=== PATIENT | female | born 1995 | race African-American/Black ===

== ENCOUNTER 2017-02-14 05:17 | Emergency (ER) | payer OTHER ==
[2017-02-14 05:20] VITALS: O2SAT 100
[2017-02-14 05:39] LABS: I-STAT POTASSIUM 3.6 MMOL/L (3.5-4.9)
[2017-02-14] MEDS ORDERED: IOHEXOL 350 MG/ML 10 ML VIAL (for RAD DIAG) IV ONE (05:43)
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
[2017-02-14 05:48] LABS: AUTOMATED NEUTROPHIL # 6.1 TH/MM3 (1.8-7.7); BASOPHIL % 0.4 % (0.0-2.0); EOSINOPHIL % 0.5 % (0.0-4.0); HEMATOCRIT 44.8 % (35.0-46.0); HEMO FLAGS DIFF FINAL; LYMPH % 32.4 % (9.0-44.0); LYMPHOCYTE # 3.3 TH/MM3 (1.0-4.8); MEAN CELL VOLUME 87.2 FL (80.0-100.0); MEAN CORPUSCULAR HEMOGLOBIN 29.3 PG (27.0-34.0); MEAN CORPUSCULAR HGB CONC 33.6 % (32.0-36.0); MONO % 6.3 % (0.0-8.0); NEUT % 60.4 % (16.0-70.0); PLATELET COUNT 247 TH/MM3 (150-450); RED BLOOD COUNT 5.13 MIL/MM3 (4.00-5.30); RED CELL DISTRIBUTION WIDTH 13.3 % (11.6-17.2); WHITE BLOOD COUNT 10.1 TH/MM3 (4.0-11.0)
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
[2017-02-14 06:07] LABS: APTT (PATIENT) 24.2 SEC (24.3-30.1); PROTHROMBIN TIME - PATIENT 10.5 SEC (9.8-11.6)
[2017-02-14] MEDS ORDERED: NALOXONE HCL 2 MG/2 ML VIAL IV PUSH ONE (06:15)
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
[2017-02-14 07:17] VITALS: BP 131/69; PULSE 98; RESP 16; O2SAT 99
[2017-02-14 07:20] VITALS: RESP 16; O2SAT 99
[2017-02-14 11:30] VITALS: BP 125/68; PULSE 102; RESP 20; O2SAT 99
[2017-02-14] MEDS ORDERED: IBUP-232 PO (15:48)
== END 2017-02-14 15:54 | disposition home or self-care (01) ==
LOC: EDBD 05:17 → NEPI 05:17 → NEPE 15:54
DX: S71.111A Laceration without foreign body, right thigh, initial encounter (principal); S81.011A Laceration without foreign body, right knee, initial encounter; S00.81XA Abrasion of other part of head, initial encounter; D27.0 Benign neoplasm of right ovary; F10.120 Alcohol abuse with intoxication, uncomplicated; Y90.6 Blood alcohol level of 120-199 mg/100 ml; V47.5XXA Car driver injured in collision with fixed or stationary object in traffic accident, initial encounter; Z23 Encounter for immunization
CPT/HCPCS: 12002; 70450; 70486; 71010; 71260; 72125; 72170; 73560; 74177; 80307; 82435; 82565; 82947; 84132; 84295; 84520; 85025; 85610; 85730; 86850; 86900; 86901; 90471; 96361; 96374; 96375; 99291; Q9967; G0390

== ENCOUNTER 2017-02-22 17:08 | Emergency (ER) | payer SELFPAY ==
[~2017-02-22 17:08] MED LIST: IBUP-232 PO
[2017-02-22 17:12] VITALS: BP 131/79; PULSE 70; RESP 16; TEMP 99.1; O2SAT 99
[2017-02-22] MEDS ORDERED: IBUPROFEN 800 MG TAB PO ONE (18:45)
--- NOTE | 2017-02-22 18:45 | PD ---
HPI Chief Complaint: Wound/Suture/Staple Re-Check Time Seen by Provider: 18:44 Travel History International Travel<30 days: No Contact w/Intl Traveler<30days: No Traveled to known affect area: No History of Present Illness HPI 21-year-old female presents to the emergency department requesting suture and staple removal to her right leg. The patient in place since February 14. She denies drainage from the wound sites. Denies fever, vomiting. Has no other medical complaints. Allergies to penicillin. No other modifying factors or associated signs and symptoms. FOR[facility]LY [facility] Social History Alcohol Use: Yes Tobacco Use: No Allergies-Medications (Allergen,Severity, Reaction): Coded Allergies: UNOBTAINABLE (Unverified , 02/14/17) Reported Meds & Prescriptions Reported Meds & Active Scripts Active Ibuprofen 600 Mg Tab 600 Mg PO Q6H PRN Review of Systems Except as stated in HPI: all other systems reviewed are Neg Physical Exam Narrative GENERAL: Well-nourished, well-developed female patient, in no acute distress SKIN: Warm and dry. Posterior right thigh with laceration that is well approximated and with [place] intact; without erythema, edema, drainage. Right lateral knee area with multiple abrasions and a laceration is well approximated with sutures intact and without erythema, edema, drainage. No signs of infection to any either site. Multiple abrasions noted to right lower extremity and I see no signs of infection. HEAD: Atraumatic. Normocephalic. EYES: Pupils equal and round. No scleral icterus. No injection or drainage. ENT: Mucosa pink and moist. Airway patent. NECK: Trachea midline. CARDIOVASCULAR: Regular rate. RESPIRATORY: No accessory muscle use. GASTROINTESTINAL: Flat. MUSCULOSKELETAL: No obvious deformities. No clubbing. No cyanosis. No edema. NEUROLOGICAL: Awake and alert. Oriented 3. No obvious cranial nerve deficits. Motor grossly within normal limits. Normal speech. PSYCHIATRIC: Appropriate mood and affect; insight and judgment normal. Data Data Last Documented VS Vital Signs Date Time Temp Pulse Resp B/P Pulse Ox O2 Delivery O2 Flow Rate FiO2 02/22/17 17:12 99.1 70 16 131/79 99 MDM Medical Decision Making Medical Screen Exam Complete: Yes Emergency Medical Condition: Yes Medical Record Reviewed: Yes Differential Diagnosis Suture removal, staple removal, wound recheck Narrative Course 21-year-old female presents for suture removal and staple removal to her right lower extremity. [place] and sutures were placed on February 14. The wounds are well approximated and without signs of infection. [place] and sutures removed. Patient tolerated well. Discharge instructions with acute wound care provided. Patient verbalizes understanding and agreement with treatment plan. Patient is medically cleared and stable for discharge. Discussed reasons to return to the emergency department. Instructed patient to follow up with primary care provider. Patient agrees with treatment plan. The patients vital signs are stable and the patient is stable for outpatient follow-up and treatment. Patient discharged home, stable and in no acute distress. Diagnosis Primary Impression: Encounter for removal of sutures Additional Impression: Encounter for removal of [place] Referrals: Primary Care Physician Patient Instructions: Acute Wound Care (ED), General Instructions, Stitches Removal (ED) Additional Instructions: Instructions for acute wound care provided in your discharge instructions Ibuprofen or Tylenol instructed nausea for pain and inflammation Follow-up with primary care provider Return to the emergency department immediately with worsening of symptoms Med/Other Pt SpecificInfo: No Change to Meds, No Meds Exist/No RX given Disposition: 01 DISCHARGE HOME Condition: Stable Fabiola Trevino Feb 22, 2017 18:45
== END 2017-02-22 19:05 | disposition home or self-care (01) ==
LOC: NEPK 17:08
DX: Z48.02 Encounter for removal of sutures (principal)
CPT/HCPCS: 99281